=== PATIENT | male | born 1970 | race Caucasian/White ===

== ENCOUNTER 2018-08-11 21:26 | Observation (INO) | payer BC ==
[2018-08-11] MEDS ORDERED: fentaNYL 100 MCG/2 ML SDV IV ONE (22:05)
[2018-08-11] MEDS ORDERED: Lactated Ringers 1,000 ML IV SCH (22:15)
--- NOTE | 2018-08-11 22:21 | EDM.PDOC ---
ED HPI GENERAL MEDICAL PROBLEM - General Chief Complaint: Back Pain or Injury Stated Complaint: low back pain and right leg pain Time Seen by Provider: 08/11/18 21:50 Source of Information: Reports: Patient, Family History Limitations: Reports: No Limitations - History of Present Illness INITIAL COMMENTS - FREE TEXT/NARRATIVE: Patient presents with severe low back pain with radiculopathy to the right leg. Patient had a fall back in May and has been dealing with this ever since. He tried meds and PT until the end of June without much relief. He ultimately had a MRI which showed disc changes in L4 L5 with impingement on the nerve root. Has continued to have pain that starts in the mid back and radiates down his leg. He states that he was getting by on hydrocodone but since Thursday, he has not been able to get up off the floor. Not eating. Hasn' t been able to have a BM. Over the last 2 months, patient had tried a medrol dose pack which did help him the most. Oxycodone has not helped with pain in the past. Has not yet tried Lyrica or Gabapentin. Does feel his leg is getting weak as any time he puts weight on his leg, causes more pain. Unable to sit due to pain. Patient was seen by Dr. Encinas and advised he does need surgical intervention. They were waiting on prior authorization and just found out yesterday that as it was an outpatient procedure, did not authorization to proceed. contacted Dr. Encinas's office and was told they would arrange for surgery once notified by the billing department. Now awaiting surgical date. Onset: Gradual Duration: Week(s):, Getting Worse Location: Reports: Back, Lower Extremity, Right Quality: Reports: Sharp Severity: Severe Improves with: Reports: Rest (pain best relieved by lying flat on his back on the floor) Worsens with: Reports: Movement Associated Symptoms: Reports: No Other Symptoms Treatments DEPUTY COMMISSIONER: Reports: Other Medication(s) Other Treatments DEPUTY COMMISSIONER: hydrocodone - Related Data Allergies Allergy/AdvReac Type Severity Reaction Status Date / Time No Known Allergies Allergy Verified 08/11/18 21:28 Home Meds: Home Meds Adalimumab [Humira] 40 mg SQ ASDIRECTED 11/13/14 [History] Hydrocodone/Acetaminophen [Hydrocodon-Acetaminophen 5-325] 1 - 2 tab PO Q4H PRN 08/11/18 [History] Losartan/Hydrochlorothiazide [Losartan-HCTZ 100-25 MG] 1 tab PO DAILY 08/11/18 [ History] Past Medical History Cardiovascular History: Reports: Hypertension Other Musculoskeletal History: Left Thoracic Outlet Syndrome in October 2014. left carpal tunnel surgery - Past Surgical History Other Cardiovascular Surgeries/Procedures: blood clot in left shoulder in 2014 and had a rib removed. Thoracic Outlet Syndrome Other Neurological Surgeries/Procedures: neck surgery Social & Family History - Tobacco Use Smoking Status *Q: Former Smoker Used Tobacco, but Quit: Yes Month/Year Tobacco Last Used: 2005 Second Hand Smoke Exposure: No ED ROS GENERAL - Review of Systems Review Of Systems: See Below Constitutional: Reports: Weakness. Denies: Fever, Chills, Malaise HEENT: Reports: No Symptoms Respiratory: Denies: Shortness of Breath, Cough Cardiovascular: Denies: Chest Pain, Edema, Lightheadedness Endocrine: Denies: Fatigue GI/Abdominal: Reports: Constipation. Denies: Abdominal Pain, Nausea, Vomiting : Reports: No Symptoms Musculoskeletal: Reports: Back Pain, Leg Pain Skin: Reports: No Symptoms Neurological: Reports: Numbness (to right buttock, present now for weeks), Difficulty Walking, Weakness ED EXAM,LOWER BACK PAIN/INJURY - Physical Exam Exam: See Below Exam Limited By: No Limitations General Appearance: Alert, WD/WN, Mild Distress Ears: Normal External Exam, Normal TMs Nose: Normal Inspection, Normal Mucosa, No Blood Throat/Mouth: Normal Inspection, Normal Oropharynx Head: Normocephalic Neck: Normal Inspection, Supple, Non-Tender Respiratory/Chest: No Respiratory Distress, Lungs Clear, Normal Breath Sounds Cardiovascular: Regular Rate, Rhythm GI/Abdominal: Normal Bowel Sounds, Soft, Non-Tender Back Exam: Normal Inspection, Decreased Range of Motion, Muscle Spasm (pain with palpation to right lumbar musculature, right buttock and right posterior thigh), Paraspinal Tenderness Extremities: Normal Inspection, Normal Capillary Refill Neurological: Alert, Normal Mood/Affect Skin Exam: Warm, Dry Course - Vital Signs Last Recorded V/S: Last Vital Signs Temp 97.5 F 08/11/18 21:53 Pulse 110 H 08/11/18 21:53 Resp 16 08/11/18 21:53 BP 147/105 H 08/11/18 21:53 Pulse Ox 95 08/11/18 21:53 - Orders/Labs/Meds Orders: Active Orders 24 hr Category Date Time Status Patient Status Manage Transfer [TRANSFER] Routine ADT 08/11/18 22:14 Ordered Lactated Ringers [Ringers, Lactated] 1,000 ml Med 08/11/18 22:15 Active IV ASDIRECTED Resuscitation Status Routine Resus Stat 08/11/18 22:14 Ordered Medication Orders Lactated Ringer's (Ringers, Lactated) 1,000 mls @ 125 mls/hr IV ASDIRECTED BEV Last Admin: 08/11/18 22:25 Dose: 125 mls/hr Meds: Medications Generic Name Dose Route Start Last Admin Trade Name Freq PRN Reason Stop Dose Admin Lactated Ringer's 1,000 mls @ 125 mls/hr 08/11/18 22:15 08/11/18 22:25 Ringers, Lactated IV 125 mls/hr ASDIRECTED BEV Administration Discontinued Medications Generic Name Dose Route Start Last Admin Trade Name Freq PRN Reason Stop Dose Admin Fentanyl 25 mcg 08/11/18 22:05 08/11/18 22:16 Sublimaze IV 08/11/18 22:06 25 mcg ONETIME ONE Administration - Re-Assessments/Exams Free Text/Narrative Re-Assessment/Exam: 08/11/18 Admission to observation discussed for pain control, physical therapy, initiate treatment with Lyrica. Will contact Dr. Encinas's office in am to see if intervention could be expedited. patient and agree with plan. Departure - Departure Time of Disposition: 22:55 Disposition: Refer to Observation Condition: Fair Clinical Impression: Low back pain radiating down leg - Discharge Information *PRESCRIPTION DRUG MONITORING PROGRAM REVIEWED*: No *COPY OF PRESCRIPTION DRUG MONITORING REPORT IN PATIENT SHANNAN: No Forms: ED Department Discharge - Problem List & Annotations (1) Low back pain radiating down leg SNOMED Code(s): 292772199, 89027768, 160972222 Code(s): M54.5 - LOW BACK PAIN Status: Acute Priority: High Current Visit: Yes - Problem List Review Problem List Initiated/Reviewed/Updated: Yes - My Orders Last 24 Hours: My Active Orders 08/11/18 22:14 Patient Status Manage Transfer [TRANSFER] Routine Resuscitation Status Routine 08/11/18 22:15 Lactated Ringers [Ringers, Lactated] 1,000 ml IV ASDIRECTED - Assessment/Plan Admission H&P: Please use this note as an admission H&P Last 24 Hours: My Active Orders 08/11/18 22:14 Patient Status Manage Transfer [TRANSFER] Routine Resuscitation Status Routine 08/11/18 22:15 Lactated Ringers [Ringers, Lactated] 1,000 ml IV ASDIRECTED Assessment:: Low back pain with radiculopathy Plan: Admit to observation. Start IV Fentanyl for the pain. Lyrica 50 mg TID. One time dose of Solu Medrol IV.
[2018-08-11] MEDS ORDERED: ADALIMUMAB 40 MG SQ SCH (23:07)
[2018-08-11] MEDS ORDERED: Pantoprazole 40 MG Vial IVPUSH ONE (23:07)
[2018-08-11] MEDS ORDERED: Ondansetron 4 MG Tab.DIS PO PRN (23:07)
[2018-08-11] MEDS ORDERED: Ondansetron 4 MG/2 ML SDV IV PRN (23:07)
[2018-08-11] MEDS ORDERED: methylPREDNISolone Sodium Succinate 125 MG/2 ML SDV IVPUSH ONE (23:07)
[2018-08-11] MEDS ORDERED: Sodium Chloride 0.9% 10 ML Syringe FLUSH PRN (23:07)
[2018-08-11] MEDS ORDERED: Acetaminophen 325 MG Tab PO PRN (23:07)
[2018-08-11] MEDS ORDERED: Acetaminophen/HYDROcodone 325-5 MG Tab**OWN MED PO PRN (23:20)
[2018-08-11] MEDS: Enoxaparin 40 MG/0.4 ML Syringe SUBCUT SCH (23:46)
[2018-08-11] MEDS: fentaNYL 100 MCG/2 ML SDV IVPUSH PRN (23:47)
[2018-08-11] MEDS: Pregabalin 50 MG Cap PO SCH (23:59)
[2018-08-12] MEDS: fentaNYL 100 MCG/2 ML SDV IVPUSH PRN ×3 (02:53→08:39)
[2018-08-12] MEDS: Lactated Ringers 1,000 ML IV SCH ×3 (05:46→22:08)
[2018-08-12] MEDS: LOSARTAN HCTZ PO SCH (07:32)
[2018-08-12] MEDS: Pregabalin 50 MG Cap PO SCH ×3 (07:37→20:19)
[2018-08-12] MEDS ORDERED: Losartan 100 MG Tab PO SCH (08:00)
[2018-08-12] MEDS ORDERED: Hydrochlorothiazide 25 MG Tab PO SCH (08:00)
[2018-08-12] MEDS ORDERED: Pregabalin 50 MG Cap PO SCH (08:00)
[2018-08-12] MEDS: Ketorolac 30 MG/ML SDV IVPUSH SCH ×3 (10:36→22:00)
[2018-08-12] MEDS: HYDROmorphone 1 MG/ML Syringe IVPUSH PRN ×2 (11:01→15:37)
--- NOTE | 2018-08-12 14:56 | PCM.PN ---
- General Info Date of Service: 08/12/18 Admission Dx/Problem (Free Text): Acute low back pain with RLE radiculopathy Functional Status: Reports: Urinating. Denies: Pain Controlled, Tolerating Diet (kept NPO), Ambulating - Review of Systems General: Reports: Weakness HEENT: Reports: No Symptoms Pulmonary: Denies: Shortness of Breath Cardiovascular: Denies: Chest Pain, Edema, Lightheadedness Gastrointestinal: Reports: Constipation. Denies: Abdominal Pain, Nausea, Vomiting Genitourinary: Reports: No Symptoms Musculoskeletal: Reports: Back Pain, Leg Pain Skin: Reports: No Symptoms Neurological: Reports: Difficulty Walking, Weakness - Patient Data Vitals - Most Recent: Last Vital Signs Temp 96.9 F 08/12/18 12:00 Pulse 117 H 08/12/18 12:00 Resp 18 08/12/18 12:00 BP 130/85 08/12/18 12:00 Pulse Ox 96 08/12/18 12:00 Weight - Most Recent: 230 lb I&O - Last 24 Hours: Intake & Output 08/11/18 08/12/18 08/12/18 22:59 06:59 14:59 Intake Total 500 1000 Output Total 500 Balance 0 1000 Med Orders - Current: Current Medications Acetaminophen (Tylenol) 650 mg PO Q4H PRN PRN Reason: Pain (Mild 1-3)/fever Hydrocodone Bitart/Acetaminophen (Loco 325-5 Mg) 1 - 2 tab PO Q4H PRN PRN Reason: PAIN Last Admin: 08/12/18 06:43 Dose: 1 tab Enoxaparin Sodium (Lovenox) 40 mg SUBCUT BEDTIME [facility] Last Admin: 08/11/18 23:46 Dose: 40 mg Fentanyl (Sublimaze) 25 - 50 mcg IVPUSH Q2H PRN PRN Reason: Pain Last Admin: 08/12/18 08:39 Dose: 50 mcg Hydromorphone HCl (Dilaudid) 1 mg IVPUSH Q1H PRN PRN Reason: Pain Last Admin: 08/12/18 11:01 Dose: 1 mg Lactated Ringer's (Ringers, Lactated) 1,000 mls @ 125 mls/hr IV ASDIRECTED [facility] Last Admin: 08/12/18 14:00 Dose: 125 mls/hr Ketorolac Tromethamine (Toradol) 30 mg IVPUSH Q6H [facility] Stop: 08/17/18 10:17 Last Admin: 08/12/18 10:36 Dose: 30 mg Losartan-Hctz 100-25 (Mg TabOwn Med) 1 tab PO DAILY [facility] Last Admin: 08/12/18 07:32 Dose: 1 tab Ondansetron HCl (Zofran Odt) 4 mg PO Q4H PRN PRN Reason: nausea, able to take PO Ondansetron HCl (Zofran) 4 mg IV Q4H PRN PRN Reason: Nausea/Vomiting Last Admin: 08/11/18 23:52 Dose: 4 mg Pregabalin (Lyrica) 50 mg PO TID [facility] Last Admin: 08/12/18 13:44 Dose: 50 mg Sodium Chloride (Saline Flush) 10 ml FLUSH ASDIRECTED PRN PRN Reason: Keep Vein Open Temazepam (Restoril) 15 mg PO BEDTIME PRN PRN Reason: Sleep Last Admin: 08/12/18 00:00 Dose: 15 mg Discontinued Medications Fentanyl (Sublimaze) 25 mcg IV ONETIME ONE Stop: 08/11/18 22:06 Last Admin: 08/11/18 22:16 Dose: 25 mcg Hydrochlorothiazide (Hydrochlorothiazide) 25 mg PO DAILY [facility] Lactated Ringer's (Ringers, Lactated) 1,000 mls @ 125 mls/hr IV ASDIRECTED [facility] Last Admin: 08/11/18 22:25 Dose: 125 mls/hr Losartan Potassium (Cozaar) 100 mg PO DAILY [facility] Methylprednisolone Sodium Succinate (Solu-Medrol) 125 mg IVPUSH NOW ONE Stop: 08/11/18 23:08 Last Admin: 08/11/18 23:46 Dose: 125 mg Non-Formulary Medication (Losartan/Hydrochlorothiazide [Losartan-Hctz 100-25 Mg] ) 1 tab PO DAILY [facility] Pantoprazole Sodium (Protonix Iv) 40 mg IVPUSH ONETIME ONE Stop: 08/11/18 23:08 Last Admin: 08/11/18 23:47 Dose: 40 mg Pregabalin (Lyrica) 50 mg PO TID [facility] - Exam General: Alert, Oriented HEENT: Mucous Membr. Moist/[place] Neck: Supple Lungs: Clear to Auscultation, Normal Respiratory Effort Cardiovascular: Regular Rate, Regular Rhythm GI/Abdominal Exam: Normal Bowel Sounds, Soft, Non-Tender Back Exam: Decreased Range of Motion, Muscle Spasm, Paraspinal Tenderness Extremities: Normal Inspection, No Pedal Edema, Limited Range of Motion Skin: Warm, Dry Neurological: No New Focal Deficit - Problem List & Annotations (1) Low back pain radiating down leg SNOMED Code(s): 058399625, [id number], 552261928 Code(s): M54.5 - LOW BACK PAIN Status: Acute Priority: High Current Visit: Yes - Problem List Review Problem List Initiated/Reviewed/Updated: Yes - My Orders Last 24 Hours: My Active Orders 08/11/18 22:14 Resuscitation Status Routine 08/11/18 23:07 Patient Status [ADT] Routine Bedrest Bathroom Privileges [RC] .PRN Oxygen Therapy [RC] .PRN Peripheral IV Care [RC] 0800,2000 Vital Signs [RC] 0400,0800,1200,1600,2000,0000 Acetaminophen [Tylenol] 650 mg PO Q4H PRN Enoxaparin [Lovenox] 40 mg SUBCUT BEDTIME Lactated Ringers [Ringers, Lactated] 1,000 ml IV ASDIRECTED Ondansetron [Zofran ODT] 4 mg PO Q4H PRN Ondansetron [Zofran] 4 mg IV Q4H PRN Sodium Chloride 0.9% [Saline Flush] 10 ml FLUSH ASDIRECTED PRN Temazepam [Restoril] 15 mg PO BEDTIME PRN fentaNYL [Sublimaze] 25 - 50 mcg IVPUSH Q2H PRN Peripheral IV Insertion Adult [OM.PC] Routine 08/11/18 23:20 Acetaminophen/HYDROcodone [Loco 325-5 MG] 1 - 2 tab PO Q4H PRN 08/11/18 23:45 Pregabalin [Lyrica] 50 mg PO TID 08/12/18 08:00 Losartan/Hydrochlorothiazide [Losartan-Hctz 100-25 Mg] 1 tab PO DAILY 08/12/18 10:10 K Pad [Heat Therapy] [OM.PC] Routine 08/12/18 10:16 HYDROmorphone [Dilaudid] 1 mg IVPUSH Q1H PRN 08/12/18 10:30 Ketorolac [Toradol] 30 mg IVPUSH Q6H - Assessment Assessment:: Acute Low Back Pain - Plan Plan:: Patient continues to have significant pain this am. Comfortable only if lying flat on his back with knees bent. Fentanyl has only been giving him relief for about 45 minutes. Did not note any improvement with the steroid injection or Lyrica. Has not been able to walk easily due to pain that radiates down his leg. Did contact Dr. Encinas's nurse practitioner to discuss case as patient has been waiting since July for surgery and pain is increasing as not getting much relief at all with the hydrocodone. She will discuss with insurance authorization and Dr. Encinas and see if could be expedited and contact us back yet today. Discussed pain options with Toradol and Dilaudid and she agrees with this. Will continue to keep NPO for now until further follow up with her later today.
[2018-08-12] MEDS: Enoxaparin 40 MG/0.4 ML Syringe SUBCUT SCH (20:19)
[2018-08-12] MEDS: Docusate Sodium 100 MG Cap PO PRN (20:22)
[2018-08-12] MEDS: Temazepam 15 MG Cap PO PRN ×2 (22:08)
[2018-08-13] MEDS: Ketorolac 30 MG/ML SDV IVPUSH SCH ×3 (04:18→16:17)
[2018-08-13] MEDS: HYDROmorphone 1 MG/ML Syringe IVPUSH PRN ×3 (04:58→19:00)
[2018-08-13] MEDS: Lactated Ringers 1,000 ML IV SCH (06:00)
[2018-08-13] MEDS: Pregabalin 50 MG Cap PO SCH ×2 (07:42→13:00)
[2018-08-13] MEDS: LOSARTAN HCTZ PO SCH (07:43)
[2018-08-13] MEDS: Docusate Sodium 100 MG Cap PO PRN (13:00)
--- NOTE | 2018-08-13 15:32 | PCM.DCSUM1 ---
Discharge Summary - Hospital Course Free Text/Narrative:: Patient presented to ER with complaints of intractable back pain. Had fallen back in May and has been dealing with right low back pain with radiculopathy to the right leg. Has had a MRI, seen Dr. Encinas and is currently waiting on approval for surgery. Had different courses of steroids and pain meds and was doing well until this last Thursday. Has now not been able to get up from the floor, cannot sit and the hydrocodone is no longer helping with the pain. relates that they just heard this week from the insurance company that they can proceed with surgery but unsure what to do to help his pain until that is scheduled. He has not been eating well, is constipated. Admitted and started on IV pain meds. Solu Medrol given x1. Diagnosis: Stroke: No Modified [place] Scale: No Symptoms at All Modified [place] Scale Score: 0 - Discharge Data Discharge Date: 08/13/18 Discharge Disposition: Home, Self-Care 01 Condition: Fair - Discharge Diagnosis/Problem(s) (1) Low back pain radiating down leg SNOMED Code(s): 810163757, [id number], [id number] ICD Code: M54.5 - LOW BACK PAIN Status: Acute Priority: High - Patient Summary/Data Complications: none Hospital Course: Patient has improved on current pain regimen. We initially gave him IV Solu Medrol, Fentanyl and started him on Lyrica but pain control only lasted for about [address]. [address] Encinas's office and spoke with his [employer] OPERATOR and stated they would attempt to expedite surgery as able. Approved placing the patient on IV Toradol and Dilaudid and he did quite well with that. Was able to get up to shower and tolerated for short time. Did finally have BM. Eating better. Did hear back from Dr. Encinas's office today and they will proceed with surgery on Thursday. Patient will be discharged home on Dilaudid and Lyrica. - Patient Instructions Diet: Usual Diet as Tolerated Activity: As Tolerated Other/Special Instructions: Plan for surgery on Thursday as planned - Discharge Plan *PRESCRIPTION DRUG MONITORING PROGRAM REVIEWED*: No *COPY OF PRESCRIPTION DRUG MONITORING REPORT IN PATIENT SHANNAN: No Prescriptions/Med Rec: Pregabalin [Lyrica] 50 mg PO TID #30 cap Home Medications: Home Meds Adalimumab [Humira] 40 mg SQ ASDIRECTED 11/13/14 [History] Hydrocodone/Acetaminophen [Hydrocodon-Acetaminophen 5-325] 1 - 2 tab PO Q4H PRN 08/11/18 [History] Losartan/Hydrochlorothiazide [Losartan-HCTZ 100-25 MG] 1 tab PO DAILY 08/11/18 [ History] Pregabalin [Lyrica] 50 mg PO TID #30 cap 08/13/18 [Rx] Patient Handouts: Herniated Disk Forms: ED Department Discharge - Discharge Summary/Plan Comment DC Time >30 min.: No - General Info Date of Service: 08/13/18 Admission Dx/Problem (Free Text: Acute low back pain with RLE radiculopathy Functional Status: Reports: Pain Controlled (pain is much better controlled with Dilaudid and Toradol), Tolerating Diet. Denies: Ambulating - Review of Systems General: Reports: Weakness HEENT: Reports: No Symptoms Pulmonary: Reports: No Symptoms Cardiovascular: Reports: No Symptoms Gastrointestinal: Reports: No Symptoms Genitourinary: Reports: No Symptoms Musculoskeletal: Reports: Back Pain, Leg Pain Skin: Reports: No Symptoms Neurological: Reports: Difficulty Walking, Weakness - Patient Data Vitals - Most Recent: Last Vital Signs Temp 97.2 F 08/13/18 12:00 Pulse 122 H 08/13/18 12:00 Resp 18 08/13/18 12:00 BP 120/73 08/13/18 12:00 Pulse Ox 98 08/13/18 12:00 Weight - Most Recent: 230 lb I&O - Last 24 hours: Intake & Output 08/13/18 08/13/18 08/13/18 06:59 14:59 22:59 Intake Total 1283 Output Total 700 Balance 583 Med Orders - Current: Current Medications Acetaminophen (Tylenol) 650 mg PO Q4H PRN PRN Reason: Pain (Mild 1-3)/fever Hydrocodone Bitart/Acetaminophen ([place] 325-5 Mg) 1 - 2 tab PO Q4H PRN PRN Reason: PAIN Last Admin: 08/12/18 06:43 Dose: 1 tab Docusate Sodium (Colace) 100 mg PO DAILY PRN PRN Reason: Constipation Last Admin: 08/13/18 13:00 Dose: 100 mg Enoxaparin Sodium (Lovenox) 40 mg SUBCUT BEDTIME BEV Last Admin: 08/12/18 20:19 Dose: 40 mg Fentanyl (Sublimaze) 25 - 50 mcg IVPUSH Q2H PRN PRN Reason: Pain Last Admin: 08/12/18 08:39 Dose: 50 mcg Hydromorphone HCl (Dilaudid) 1 mg IVPUSH Q1H PRN PRN Reason: Pain Last Admin: 08/13/18 14:09 Dose: 1 mg Lactated Ringer's (Ringers, Lactated) 1,000 mls @ 125 mls/hr IV ASDIRECTED [facility] Last Admin: 08/13/18 06:00 Dose: 125 mls/hr Ketorolac Tromethamine (Toradol) 30 mg IVPUSH Q6H [facility] Stop: 08/17/18 10:17 Last Admin: 08/13/18 10:07 Dose: 30 mg Losartan-Hctz 100-25 (Mg TabOwn Med) 1 tab PO DAILY [facility] Last Admin: 08/13/18 07:43 Dose: 1 tab Ondansetron HCl (Zofran Odt) 4 mg PO Q4H PRN PRN Reason: nausea, able to take PO Ondansetron HCl (Zofran) 4 mg IV Q4H PRN PRN Reason: Nausea/Vomiting Last Admin: 08/11/18 23:52 Dose: 4 mg Pregabalin (Lyrica) 50 mg PO TID [facility] Last Admin: 08/13/18 13:00 Dose: 50 mg Sodium Chloride (Saline Flush) 10 ml FLUSH ASDIRECTED PRN PRN Reason: Keep Vein Open Temazepam (Restoril) 15 mg PO BEDTIME PRN PRN Reason: Sleep Last Admin: 08/12/18 22:08 Dose: 15 mg Discontinued Medications Fentanyl (Sublimaze) 25 mcg IV ONETIME ONE Stop: 08/11/18 22:06 Last Admin: 08/11/18 22:16 Dose: 25 mcg Hydrochlorothiazide (Hydrochlorothiazide) 25 mg PO DAILY [facility] Lactated Ringer's (Ringers, Lactated) 1,000 mls @ 125 mls/hr IV ASDIRECTED [facility] Last Admin: 08/11/18 22:25 Dose: 125 mls/hr Losartan Potassium (Cozaar) 100 mg PO DAILY [facility] Methylprednisolone Sodium Succinate (Solu-Medrol) 125 mg IVPUSH NOW ONE Stop: 08/11/18 23:08 Last Admin: 08/11/18 23:46 Dose: 125 mg Non-Formulary Medication (Losartan/Hydrochlorothiazide [Losartan-Hctz 100-25 Mg] ) 1 tab PO DAILY [facility] Pantoprazole Sodium (Protonix Iv) 40 mg IVPUSH ONETIME ONE Stop: 08/11/18 23:08 Last Admin: 08/11/18 23:47 Dose: 40 mg Pregabalin (Lyrica) 50 mg PO TID [facility] - Exam General: Reports: Alert, Oriented HEENT: Reports: Mucous Membr. Moist/[place] Neck: Reports: Supple Lungs: Reports: Clear to Auscultation, Normal Respiratory Effort Cardiovascular: Reports: Regular Rate, Regular Rhythm GI/Abdominal Exam: Normal Bowel Sounds, Soft, Non-Tender Back Exam: Reports: Decreased Range of Motion, Muscle Spasm, Paraspinal Tenderness Extremities: Normal Inspection Skin: Reports: Warm, Dry Neurological: Reports: No New Focal Deficit
[2018-08-13 16:21] VITALS: BP 150/88
== END 2018-08-13 19:10 | disposition home or self-care (01) ==
LOC: CC.ED 21:26 → CC.MS 22:14 → UNDOADMOB 22:14
PROVIDERS: ADMIT Physician Assistant Medical; ATTEND Family Medicine
DX: M54.9 Dorsalgia, unspecified (principal); M54.10 Radiculopathy, site unspecified; I10 Essential (primary) hypertension; Z87.891 Personal history of nicotine dependence; Z79.899 Other long term (current) drug therapy
CPT/HCPCS: 96361; 96372; 96374; 96375; 96376; 99284; A9270-GY; C9113; G0378; J1170; J1650; J1885; J2405; J2930; J3010; J7120

== ENCOUNTER → 2019-08-26 | Day surgery (SDC) | payer BC ==
[~2019-08-26] MED LIST: Propofol 200 MG/20 ML SDV IV ONE; fentaNYL 100 MCG/2 ML SDV IV ONE
[2019-08-26] MEDS: Lactated Ringers 1,000 ML IV SCH (10:34)
[2019-08-26 12:18] VITALS: BP 126/72; PULSE 106
--- NOTE | 2019-08-29 08:12 | OR ---
DATE OF OPERATION: 08/26/2019 PREOPERATIVE DIAGNOSIS: SCREENING COLONOSCOPY. POSTOPERATIVE DIAGNOSIS: SCREENING COLONOSCOPY. SURGEON: Devan Maldonado MD PROCEDURE: FULL-LENGTH COLONOSCOPY. ANESTHESIA: MAC. COMPLICATIONS: None. SPECIMEN: None. FINDINGS: 1. Full-length colonoscopy. 2. Mild sigmoid diverticulosis. RECOMMENDATIONS: Followup colonoscopy in 10 years. INDICATIONS: The patient was in for routine physical. Due to his age, he was sent for a screening colonoscopy. DESCRIPTION OF PROCEDURE: The patient was prepped and draped, placed in the left lateral decubitus position. A lubricated Olympus colonoscope was inserted and with ease advanced to the cecum. Direct visualization of the ileocecal valve and appendiceal orifice was accomplished. The bowel prep was adequate. Upon withdrawal of the scope throughout the entire length of the colon, I could find no signs of polyps, masses, ulceration, or bleeding sites. No vascular abnormalities or signs of colitis. Scattered diverticula were seen in the sigmoid colon, mild in severity. No inflammatory changes seen. The rectal vault was benign. Retroflexion showed no perianal lesions. Air was suctioned, scope removed without complication. JUAN/TASIA /[id number]
== END ==
LOC: CC.SDS 10:04
PROVIDERS: ATTEND Family Medicine
DX: Z12.11 Encounter for screening for malignant neoplasm of colon (principal); K57.30 Diverticulosis of large intestine without perforation or abscess without bleeding; I10 Essential (primary) hypertension; R73.01 Impaired fasting glucose; R00.0 Tachycardia, unspecified; Z79.899 Other long term (current) drug therapy; Z87.891 Personal history of nicotine dependence
CPT/HCPCS: J2704; J3010; J7120